=== PATIENT | female | born 1970 | race Caucasian/White ===

== ENCOUNTER → 2020-07-15 | Outpatient (CLI) | payer BC ==
[~2020-07-15] MED LIST: LIDOCAINE 2%/EPI 1:100,000 20 ML VIAL. INJ ONE; METH54TA5 PO
--- NOTE | 2020-07-15 13:36 | RAD ---
Examination: 1. Right breast stereotactic biopsy. 2. Right breast postprocedure mammogram. INDICATION: Suspicious subareolar linear right breast calcifications, recommended for biopsy. COMPARISON: Bilateral mammogram of 06/10/2020, right diagnostic mammogram 06/18/2020. TECHNIQUE AND FINDINGS: Informed consent was obtained and an appropriate procedural pause observed. Using standard sterile technique, mammographic imaging guidance and local anesthesia, multiple 19-gauge vacuum-assisted core biopsy samples of the subareolar right breast targeting calcifications were obtained. Initial attempt at targeting the calcifications from a medial approach that with difficulty identifying the calcifications in the second stereotactic view along with limitations in breast compression thickness that prompted biopsy from a craniocaudal approach. Specimen radiograph obtained confirm resonance of targeted calcifications in the sampled tissue. Directed biopsy marker was deployed at the biopsy site and hemostasis ensured with direct breast compression for 10 minutes. Digital right post procedure mammogram showed evidence of a small postprocedure hematoma measuring 1.3 cm in diameter at the biopsy site. Patient tolerated the procedure without incident. She was instructed to follow up with her referring physician after the biopsy needle was removed, puncture site dressed and post procedure instructions reviewed. IMPRESSION: Successful right subareolar breast stereotactic biopsy of calcifications. Pathology results pending. An addendum will be issued once pathology results become available. Electronically signed by: Carolina Garcias MD (07/15/2020 1:33 PM) [id number]
--- NOTE | 2020-07-17 11:54 | PATHOLOGY ---
[facility] Accession Number: [id number] . 01 Material submitted: . breast - RIGHT BREAST TISSUE. Modifiers: right . 01 Clinical history: . RIGHT BREAST CALCIFICATIONS . 02 Diagnosis: Breast tissue, right breast needle biopsies: - Proliferative fibrocystic and fibroadenomatous changes with focal cystic change, apocrine metaplasia, and moderate ductal epithelial hyperplasia. - Few microcalcifications and focal polarizable crystalline material identified within a small dilated duct/acinus. (JPM:[facility] 07/16/2020) [facility] 07/17/2020 0902 Local . 02 Comment: There is no atypia or evidence of malignancy. Correlate with radiographic findings. (RASHEED:[facility] 07/16/2020) . 02 Electronically signed: . Galen Zuñiga MD, Pathologist NPI- [id number] . 01 Gross description: . The specimen is received in formalin, labeled "Vicki Murray, right breast". Received within a plastic cassette are multiple needle cores of fibrofatty tissue measuring 2.8 x 2.0 x 0.6 cm in aggregate dimension. The specimen is submitted entirely in cassettes A1 through A3. The cold ischemic time is 10 minutes. The total formalin fixation time is 12 hours and 5 minutes. (CAA; 07/15/2020) QAC/QAC 07/15/2020 1720 Local . 02 Pathologist provided ICD-10: N60.11, N60.01, N60.81, N62 . 02 CPT . 627567 Specimen Comment: A courtesy copy of this report has been sent to [phone] Specimen Comment: [id number], Specimen Comment: Report sent to ,DR SHANKS / DR KNAPP Performed at: 01 [facility] [place] [address], [place], [place] [id number] MD David Pan MD Phone: [phone] Performed at: 02 [facility] [place] [address] [place], [place] [id number] MD Galen Zuñiga MD Phone: [phone]
== END | disposition home or self-care (01) ==
LOC: MAMMO 07:49
PROVIDERS: ATTEND Surgery
DX: R92.1 Mammographic calcification found on diagnostic imaging of breast (principal); N60.11 Diffuse cystic mastopathy of right breast; N60.01 Solitary cyst of right breast; N60.81 Other benign mammary dysplasias of right breast; Z88.0 Allergy status to penicillin; Z88.1 Allergy status to other antibiotic agents; Z88.2 Allergy status to sulfonamides
CPT/HCPCS: 19081; 77065; 88305; C1713; J3490; 19085; 77022